=== PATIENT | female | born 1995 | race African-American/Black ===

== ENCOUNTER 2017-01-28 08:08 | Emergency (ER) | payer SELFPAY ==
[~2017-01-28] VITALS: Ht 165.1 cm; Wt 68.0 kg
[~2017-01-28 08:08] MED LIST: ACYC400T PO
[2017-01-28] MEDS ORDERED: 0.9 % SODIUM CHLORIDE 10 ML DISP.SYRIN. IV PRN (08:30)
[2017-01-28] MEDS ORDERED: IV NORMAL SALINE 1,000ML 1,000 ML IV ONE (08:30)
[2017-01-28] MEDS ORDERED: PROMETHAZINE 12.5 MG in IV NORMAL SALINE 50ML 50 ML IV PRN (08:45)
[2017-01-28] MEDS ORDERED: IV NORMAL SALINE 50ML 50 ML ONE (08:47)
[2017-01-28] MEDS ORDERED: PROMETHAZINE 25 MG/ML VIAL IV ONE (08:47)
[2017-01-28] MEDS ORDERED: diphenhydrAMINE 50 MG/ML VIAL IVP ONE (09:00)
[2017-01-28] MEDS ORDERED: ONDANSETRON PF 4 MG/2 ML VIAL. IV ONE (09:00)
[2017-01-28 09:01] LABS: CALCIUM 9.2 mg/dL (8.5-10.1); CREATININE 0.9 mg/dL (0.6-1.0); GFR 96.6; POTASSIUM 3.6 mmol/L (3.5-5.1)
[2017-01-28 09:05] LABS: BASO # 0.1 x10^3/uL (0.0-0.2); BASO % 1 % (0-3); EOS # 0.6 x10^3/uL (0.0-0.7); EOS % 9 % (0-3); HEMOGLOBIN 13.2 g/dL (12.0-15.5); LYMPH # 2.2 x10^3/uL (1.0-4.8); LYMPH % 36 % (24-48); MEAN CORPUSCULAR HEMOGLOBIN 27 pg (25-35); MEAN CORPUSCULAR HGB CONC 33 g/dL (31-37); MEAN CORPUSCULAR VOLUME 83 fL (79-100); MONO # 0.6 x10^3/uL (0.0-1.1); MONO % 10 % (0-9); NEUT # 2.6 x10^3uL (1.8-7.7); NEUT % 44 % (31-73); PLATELET COUNT 297 x10^3/uL (140-400); RED BLOOD COUNT 4.82 x10^6/uL (3.50-5.40); RED CELL DISTRIBUTION WIDTH 13.5 % (11.5-14.5)
[2017-01-28 09:30] LABS: BACTERIA,URINE MOD /HPF (0-FEW); BILIRUBIN,URINE NEG (NEG); CLARITY,URINE CLOUDY; COLOR,URINE YELLOW; GLUCOSE,URINE NEG (NEG); NITRITE,URINE NEG (NEG); RBC,URINE RARE /HPF (0-2); SQUAMOUS EPITHELIAL CELL,UR MANY /LPF; UROBILINOGEN,URINE 0.2 mg/dL (0.2 mg/dL); WBC,URINE OCC /HPF (0-4)
[2017-01-28] MEDS ORDERED: MORPHINE SULFATE 2 MG/ML DISP.SYRIN. IM ONE (09:45)
--- NOTE | 2017-01-28 09:55 | RAD ---
Indication headache. Noncontrast images of the head were obtained. No prior imaging of the head is available. The calvarium appears unremarkable. The visualized paranasal sinuses appear unremarkable. Slightly diminished aeration left mastoid air cells is noted. This is likely incidental. There is no subdural or epidural hematoma. The ventricles and sulci are normal. No mass or midline shift is seen. There is no evidence of hemorrhage. No acute finding is apparent. IMPRESSION: Normal study PQRS Compliance Statement: One or more of the following individualized dose reduction techniques were utilized for this examination: 1. Automated exposure control 2. Adjustment of the mA and/or kV according to patient size 3. Use of iterative reconstruction technique
[2017-01-28 10:44] VITALS: BP 110/63
--- NOTE | 2017-01-29 08:20 | PHYS DOC ---
Past History Past Medical History: Other Past Surgical History: No Surgical History Smoking: Non-smoker Alcohol Use: Occasionally Drug Use: None Adult General Chief Complaint Chief Complaint: HEADACHE HPI HPI Late Entry 0801/29/17 This 21-year-old lady presented with headache and nausea. She woke at 6 AM with headache and vomiting she vomits she vomited 6 times denies any fever or diarrhea. Headache did not come on suddenly was not thunderclap she denies any stiff neck really denies any other problems. She does not think she is and she has no history of migraine headaches. She presents now for evaluation Review of Systems Review of Systems Late Entry 0801/29/17 Constitutional: Denies fever or chills [] Eyes: Denies change in visual acuity, redness, or eye pain [] HENT: Denies nasal congestion or sore throat [] Respiratory: Denies cough or shortness of breath [] Cardiovascular: No additional information not addressed in HPI [] GI: Denies abdominal pain, bloody stools or diarrhea [patient does complain of nausea and vomiting] : Denies dysuria or hematuria [] Musculoskeletal: Denies back pain or joint pain [] Integument: Denies rash or skin lesions [] Neurologic: Complains of headache but denies focal weakness or sensory changes [ ] Endocrine: Denies polyuria or polydipsia [] Current Medications Current Medications Current Medications Medications (Trade) Dose Ordered Sig/Domo Start Time Stop Time Status Last Admin Dose Admin Diphenhydramine HCl (Benadryl) 25 mg 1X ONCE 01/28/17 09:00 01/28/17 09:01 DC 01/28/17 08:52 25 MG Morphine Sulfate (Morphine 2mg Syringe) 2 mg 1X ONCE 01/28/17 09:45 01/28/17 09:46 DC 01/28/17 10:00 2 MG Ondansetron HCl (Zofran) 4 mg 1X ONCE 01/28/17 09:00 01/28/17 09:01 DC 01/28/17 08:49 4 MG Promethazine HCl (Phenergan) 25 mg STK-MED ONCE 01/28/17 08:47 01/28/17 08:48 DC Promethazine HCl 12.5 mg/Sodium Chloride 50.5 ml @ 101 mls/hr PRN Q6HRS PRN 01/28/17 08:45 01/28/17 10:47 DC 01/28/17 08:53 101 MLS/HR Sodium Chloride 50 ml @ As Directed STK-MED ONCE 01/28/17 08:47 01/28/17 08:48 DC Sodium Chloride (Normal Saline Flush) 10 ml PRN DAILY PRN 01/28/17 08:30 01/28/17 10:47 DC Allergies Allergies Allergies Coded Allergies Type Severity Reaction Last Updated Verified No Known Drug Allergies 01/28/17 No Physical Exam Physical Exam Late entry 0801/29/17 Constitutional: Well developed, well nourished, no acute distress, non-toxic appearance. [] HENT: Normocephalic, atraumatic, bilateral external ears normal, oropharynx moist, no oral exudates, nose normal. [] Eyes: PERRLA, EOMI, conjunctiva normal, no discharge. [] Neck: Normal range of motion, no tenderness, supple, no stridor. [] Cardiovascular:Heart rate regular rhythm, no murmur [] Lungs & Thorax: Bilateral breath sounds clear to auscultation [] Abdomen: Bowel sounds normal, soft, no tenderness, no masses, no pulsatile masses. [] Skin: Warm, dry, no erythema, no rash. [] Back: No tenderness, no CVA tenderness. [] Extremities: No tenderness, no cyanosis, no clubbing, ROM intact, no edema. [] Neurologic: Alert and oriented X 3, normal motor function, normal sensory function, no focal deficits noted. [] Psychologic: Affect normal, judgement normal, mood normal. [] Current Patient Data Vital Signs Vital Signs Date Time Temp Pulse Resp B/P (MAP) Pulse Ox O2 Delivery O2 Flow Rate FiO2 01/28/17 10:44 88 18 110/63 (79) 96 Room Air 01/28/17 08:16 97.7 Lab Results Laboratory Tests Test 01/28/17 08:20 01/28/17 08:29 01/28/17 08:44 Urine Collection Type Unknown Urine Color Yellow Urine Clarity Cloudy Urine pH 5.5 Urine Specific [place] >=1.030 Urine Protein 30 mg/dl (NEG-TRACE) Urine Glucose (UA) Neg mg/dL (NEG) Urine Ketones (Stick) Trace mg/dL (NEG) Urine Blood Neg (NEG) Urine Nitrite Neg (NEG) Urine Bilirubin Neg (NEG) Urine Urobilinogen Dipstick 0.2 mg/dL (0.2 mg/dL) Urine Leukocyte Esterase Neg (NEG) Urine RBC Rare /HPF (0-2) Urine WBC Occ /HPF (0-4) Urine Squamous Epithelial Cells Many /LPF Urine Bacteria Mod /HPF (0-FEW) Urine Mucus Slight /LPF POC Urine HCG, Qualitative hcg negative (Negative) White Blood Count 6.0 x10^3/uL (4.0-11.0) Red Blood Count 4.82 x10^6/uL (3.50-5.40) Hemoglobin 13.2 g/dL (12.0-15.5) Hematocrit 40.0 % (36.0-47.0) Mean Corpuscular Volume 83 fL (79-100) Mean Corpuscular Hemoglobin 27 pg (25-35) Mean Corpuscular Hemoglobin Concent 33 g/dL (31-37) Red Cell Distribution Width 13.5 % (11.5-14.5) Platelet Count 297 x10^3/uL (140-400) Neutrophils (%) (Auto) 44 % (31-73) Lymphocytes (%) (Auto) 36 % (24-48) Monocytes (%) (Auto) 10 % (0-9) H Eosinophils (%) (Auto) 9 % (0-3) H Basophils (%) (Auto) 1 % (0-3) Neutrophils # (Auto) 2.6 x10^3uL (1.8-7.7) Lymphocytes # (Auto) 2.2 x10^3/uL (1.0-4.8) Monocytes # (Auto) 0.6 x10^3/uL (0.0-1.1) Eosinophils # (Auto) 0.6 x10^3/uL (0.0-0.7) Basophils # (Auto) 0.1 x10^3/uL (0.0-0.2) Sodium Level 140 mmol/L (136-145) Potassium Level 3.6 mmol/L (3.5-5.1) Chloride Level 103 mmol/L (98-107) Carbon Dioxide Level 25 mmol/L (21-32) Anion Gap 12 (6-14) Blood Urea Nitrogen 13 mg/dL (7-20) Creatinine 0.9 mg/dL (0.6-1.0) Estimated GFR (Cockcroft-Gault) 96.6 Glucose Level 111 mg/dL (70-99) H Calcium Level 9.2 mg/dL (8.5-10.1) EKG EKG [] Radiology/Procedures Radiology/Procedures late entry 0801/29/17 CT scan of the head is essentially unremarkable [] Impressions: Late entry [id number] Headache Nausea and vomiting Course & Med Decision Making Course & Med Decision Making Pertinent Labs and Imaging studies reviewed. (See chart for details)Late entry 0801/29/17 Agents laboratory evaluation reveals a white count of 6000 with 10 monos and 9 eos urinalysis is negative and the patient is not patient's chemistries are all essentially unremarkable with the glucose being 111 This patient presented to our emergency department with headache nausea and vomiting. Her examination was essentially unremarkable with no stiff neck no fever and no other symptoms. She was given a liter of saline she was given Zofran she was given Phenergan 12.5 mg IV as well as Benadryl 25 mg IV and finally she was given morphine 2 mg IV her headache resolved she felt better she was instructed to rest and plenty of fluids with her doctor problems persist This headache may certainly represent a migraine variant [] Dragon Disclaimer Dragon Disclaimer This chart was dictated in whole or in part using Voice Recognition software in a busy, high-work load, and often noisy Emergency Department environment. It may contain unintended and wholly unrecognized errors or omissions. Departure Departure: Impression: Primary Impression: Vomiting Additional Impression: Headache Disposition: HOME, SELF-CARE Condition: STABLE Patient Instructions: Headache, FAQs Problem Qualifiers ADEN LUKE MD January 29, 2017 08:20
== END 2017-01-28 10:45 | disposition home or self-care (01) ==
LOC: ER 08:08
DX: R51 Headache (principal); R11.2 Nausea with vomiting, unspecified
CPT/HCPCS: 36415; 70450; 80048; 81001; 84703; 85027; 96365; 96372; 96375; 99285; J1200; J2270; J2405; J2550; 81025; J7030

== ENCOUNTER 2017-03-22 14:08 | Emergency (ER) | payer OTHER ==
[~2017-03-22] VITALS: Ht 165.1 cm; Wt 68.0 kg
[2017-03-22 14:15] VITALS: BP 134/60
[2017-03-22] MEDS ORDERED: IV NORMAL SALINE 1,000ML 1,000 ML IV SCH (16:02)
[2017-03-22 16:34] LABS: BACTERIA,URINE 0 /HPF (0-FEW); BILIRUBIN,URINE NEG (NEG); CLARITY,URINE HAZY; COLOR,URINE YELLOW; GLUCOSE,URINE NEG (NEG); RBC,URINE TNTC /HPF (0-2); SQUAMOUS EPITHELIAL CELL,UR OCC /LPF; UROBILINOGEN,URINE 0.2 mg/dL (0.2 mg/dL)
[2017-03-22 16:35] LABS: NITRITE,URINE NEG (NEG)
[2017-03-22 16:57] LABS: BASO % 1 % (0-3); EOS # 0.2 x10^3/uL (0.0-0.7); EOS % 3 % (0-3); HEMATOCRIT 42.6 % (36.0-47.0); HEMOGLOBIN 14.2 g/dL (12.0-15.5); LYMPH # 1.8 x10^3/uL (1.0-4.8); LYMPH % 31 % (24-48); MEAN CORPUSCULAR HEMOGLOBIN 28 pg (25-35); MEAN CORPUSCULAR HGB CONC 33 g/dL (31-37); MEAN CORPUSCULAR VOLUME 84 fL (79-100); MONO # 0.4 x10^3/uL (0.0-1.1); MONO % 6 % (0-9); NEUT # 3.3 x10^3uL (1.8-7.7); NEUT % 59 % (31-73); PLATELET COUNT 272 x10^3/uL (140-400); RED BLOOD COUNT 5.07 x10^6/uL (3.50-5.40); WHITE BLOOD COUNT 5.6 x10^3/uL (4.0-11.0)
[2017-03-22 17:24] LABS: ALBUMIN 4.4 g/dL (3.4-5.0); CALCIUM 9.5 mg/dL (8.5-10.1); CREATININE 0.9 mg/dL (0.6-1.0); DIRECT BILIRUBIN 0.2 mg/dL (0.0-0.2); GFR 96.6; MAGNESIUM 2.1 mg/dL (1.8-2.4); POTASSIUM 3.7 mmol/L (3.5-5.1); TOTAL BILIRUBIN 0.7 mg/dL (0.2-1.0); TOTAL PROTEIN 8.4 g/dL (6.4-8.2)
--- NOTE | 2017-03-22 18:05 | RAD ---
Ultrasound Pelvis Indication: came in for a STD check and had a positive urine preg test. quant beta hcg was not available at the time of exam it is still being processed Technique: Multiple real-time grayscale images were obtained over the pelvis transabdominally and transvaginally. Color Doppler imaging was utilized. Comparison: None Findings: The uterus is normal in size measuring 6.9 x 3.2 x 2.6 cm. There is a single intrauterine gestational sac with a diameter of 0.2 cm compatible with estimated gestational age 4 weeks 6 days. pole is not yet visible. The right ovary measures 2.7 x 3.0 x 1.3 cm. No abnormal right ovarian lesions are identified. Normal blood flow is identified. The left ovary measures 2.5 x 2.8 x 2.1 cm. A 1.1 x 1.4 x 1.2 cm cyst is noted. Normal blood flow is identified No pelvic free fluid is identified. Impression: Single intrauterine gestational sac with estimated gestational age 4 weeks 6 days. Electronically signed by: Sudhir Villatoro MD (03/22/2017 6:02 PM) [facility]
--- NOTE | 2017-03-22 18:15 | PHYS DOC ---
Past History Past Medical History: No Pertinent History, STD Past Surgical History: No Surgical History Smoking: Non-smoker Alcohol Use: None Drug Use: None Adult General Chief Complaint Chief Complaint: SEXUALLY TRANSMITTED DISEASE HPI HPI Patient is a 21 year old female who presents with complaints of abdominal pain and vaginal bleeding. The patient states that her symptoms have been present over the past 2-3 days. Patient states that she has been having burning with urination and abnormal discharge. The patient thinks that she may have a sexually transmitted infection which is why she came to the emergency department. Patient has had multiple sexual partners over the past 2 weeks. Patient denies any fevers. Patient states that her pain is in her lower abdomen and feels like cramping. The patient also notes that she is been having abnormal vaginal bleeding. Patient states that her last menstrual period was in January 2017. Patient notes that she also had spotting on February 28, 2017 that resolved and is now having additional bleeding today. Patient has not taken a test at home and does not know if she is . Patient rates the pain in her abdomen as 6 out of 10. Review of Systems Review of Systems Constitutional: Denies fever or chills [] Eyes: Denies change in visual acuity, redness, or eye pain [] HENT: Denies nasal congestion or sore throat [] Respiratory: Denies cough or shortness of breath [] Cardiovascular: Denies chest pain or edema [] GI: Abdominal pain, nausea, denies vomiting or diarrhea [] : Vaginal bleeding, vaginal discharge, dysuria [] Musculoskeletal: Back pain [] Integument: Denies rash or skin lesions [] Neurologic: Denies headache, focal weakness or sensory changes [] Current Medications Current Medications Current Medications Medications (Trade) Dose Ordered Sig/[facility] Start Time Stop Time Status Last Admin Dose Admin Sodium Chloride 1,000 ml @ 1,000 mls/hr Q1H 03/22/17 16:02 03/22/17 17:01 DC Allergies Allergies Allergies Coded Allergies Type Severity Reaction Last Updated Verified No Known Drug Allergies 01/28/17 No Physical Exam Physical Exam Constitutional: Alert, afebrile, no acute distress. [] HENT: Normocephalic, atraumatic, bilateral external ears normal, oropharynx moist, no oral exudates, nose normal. [] Eyes: PERRLA, EOMI, conjunctiva normal, no discharge. [] Neck: Normal range of motion, no tenderness, supple, no stridor. [] Cardiovascular:Heart rate regular rhythm, no murmur [] Lungs & Thorax: Bilateral breath sounds clear to auscultation [] Abdomen: Bowel sounds normal, soft, mild suprapubic tenderness to palpation with no guarding or rebound tenderness, no masses, no pulsatile masses. : Normal external exam, mild to moderate amount of blood in vaginal canal, cervical os closed, no cervical motion tenderness, mild midline tenderness on bimanual exam [] Skin: Warm, dry, no erythema, no rash. [] Back: No tenderness, no CVA tenderness. [] Extremities: No tenderness, no cyanosis, no clubbing, ROM intact, no edema. [] Neurologic: Alert and oriented X 3, normal motor function, normal sensory function, no focal deficits noted. [] Current Patient Data Vital Signs Vital Signs Date Time Temp Pulse Resp B/P (MAP) Pulse Ox O2 Delivery O2 Flow Rate FiO2 03/22/17 14: 98.0 98 19 99 Room Air Lab Results Laboratory Tests Test 03/22/17 15:40 03/22/17 15:58 03/22/17 16:35 Urine Collection Type Unknown Urine Color Yellow Urine Clarity Hazy Urine pH 6.0 Urine Specific [place] 1.015 Urine Protein Neg (NEG-TRACE) Urine Glucose (UA) Neg mg/dL (NEG) Urine Ketones (Stick) 15 mg/dL (NEG) Urine Blood Large (NEG) Urine Nitrite Neg (NEG) Urine Bilirubin Neg (NEG) Urine Urobilinogen Dipstick 0.2 mg/dL (0.2 mg/dL) Urine Leukocyte Esterase Trace (NEG) Urine RBC Tntc /HPF (0-2) Urine WBC 1-4 /HPF (0-4) Urine Squamous Epithelial Cells Occ /LPF Urine Bacteria 0 /HPF (0-FEW) Urine Mucus Slight /LPF POC Urine HCG, Qualitative hcg positive (Negative) White Blood Count 5.6 x10^3/uL (4.0-11.0) Red Blood Count 5.07 x10^6/uL (3.50-5.40) Hemoglobin 14.2 g/dL (12.0-15.5) Hematocrit 42.6 % (36.0-47.0) Mean Corpuscular Volume 84 fL (79-100) Mean Corpuscular Hemoglobin 28 pg (25-35) Mean Corpuscular Hemoglobin Concent 33 g/dL (31-37) Red Cell Distribution Width 14.0 % (11.5-14.5) Platelet Count 272 x10^3/uL (140-400) Neutrophils (%) (Auto) 59 % (31-73) Lymphocytes (%) (Auto) 31 % (24-48) Monocytes (%) (Auto) 6 % (0-9) Eosinophils (%) (Auto) 3 % (0-3) Basophils (%) (Auto) 1 % (0-3) Neutrophils # (Auto) 3.3 x10^3uL (1.8-7.7) Lymphocytes # (Auto) 1.8 x10^3/uL (1.0-4.8) Monocytes # (Auto) 0.4 x10^3/uL (0.0-1.1) Eosinophils # (Auto) 0.2 x10^3/uL (0.0-0.7) Basophils # (Auto) 0.0 x10^3/uL (0.0-0.2) Maternal Serum HCG Beta Subunit 21 mIU/mL (0-6) H Sodium Level 140 mmol/L (136-145) Potassium Level 3.7 mmol/L (3.5-5.1) Chloride Level 104 mmol/L (98-107) Carbon Dioxide Level 28 mmol/L (21-32) Anion Gap 8 (6-14) Blood Urea Nitrogen 12 mg/dL (7-20) Creatinine 0.9 mg/dL (0.6-1.0) Estimated GFR (Cockcroft-Gault) 96.6 Glucose Level 79 mg/dL (70-99) Calcium Level 9.5 mg/dL (8.5-10.1) Magnesium Level 2.1 mg/dL (1.8-2.4) Total Bilirubin 0.7 mg/dL (0.2-1.0) Direct Bilirubin 0.2 mg/dL (0.0-0.2) Aspartate Amino Transferase (AST) 16 U/L (15-37) Alanine Aminotransferase (ALT) 17 U/L (14-59) Alkaline Phosphatase 96 U/L (46-116) Total Protein 8.4 g/dL (6.4-8.2) H Albumin 4.4 g/dL (3.4-5.0) Microbiology 03/22/17 Wet Prep - Final, Complete EKG EKG Not performed [] Radiology/Procedures Radiology/Procedures [address] [address] IMAGING REPORT Signed PATIENT: DAIANA COSTA ACCOUNT: [id number] : 1995 LOCATION: ER AGE: 21 SEX: F EXAM STATUS: REG ER ORD. PHYSICIAN: LEXI LEA MD REASON: vaginal bleeding, positive test, LMP 01/2017 PROCEDURE: OB <14 WKS W/TV Ultrasound Pelvis Indication: came in for a STD check and had a positive urine preg test. quant beta hcg was not available at the time of exam it is still being processed Technique: Multiple real-time grayscale images were obtained over the pelvis transabdominally and transvaginally. Color Doppler imaging was utilized. Comparison: None Findings: The uterus is normal in size measuring 6.9 x 3.2 x 2.6 cm. There is a single intrauterine gestational sac with a diameter of 0.2 cm compatible with estimated gestational age 4 weeks 6 days. pole is not yet visible. The right ovary measures 2.7 x 3.0 x 1.3 cm. No abnormal right ovarian lesions are identified. Normal blood flow is identified. The left ovary measures 2.5 x 2.8 x 2.1 cm. A 1.1 x 1.4 x 1.2 cm cyst is noted. Normal blood flow is identified No pelvic free fluid is identified. Impression: Single intrauterine gestational sac with estimated gestational age 4 weeks 6 days. Electronically signed by: Akbar Villatoro MD (03/22/2017 6:02 PM) [facility] DICTATED AND SIGNED BY: AKBAR VILLATORO MD DATE: 03/22/17 2772 CC: LEXI LEA MD; PCP,NO ~ [] Course & Med Decision Making Course & Med Decision Making Pertinent Labs and Imaging studies reviewed. (See chart for details) Patient was found have a positive test in the emergency department. I expanded workup, the patient's hCG level was found to be very low and patient's ultrasound does not show an obvious intrauterine but does show a gestational sac. Considerations are early with threatened miscarriage versus active miscarriage. I spoke with Dr. Tena of [facility] regarding case. She agreed based off of reviewing labs, history, and ultrasound findings that the patient at this time can be followed as outpatient. She agreed to follow-up with the patient in her clinic in the next 5 days. Due to risk of exposure to STD, the patient was treated with Rocephin and azithromycin in the emergency department. Patient informed of findings and stressed importance of need to follow-up. Recommended return to the emergency department for any worsening symptoms. Patient voiced understanding and in agreement with treatment plan. Dragon Disclaimer Dragon Disclaimer This chart was dictated in whole or in part using Voice Recognition software in a busy, high-work load, and often noisy Emergency Department environment. It may contain unintended and wholly unrecognized errors or omissions. Departure Departure: Impression: Primary Impression: Threatened miscarriage Disposition: 01 HOME, SELF-CARE Condition: STABLE Referrals: PCP,NO (PCP) Patient Instructions: Threatened Miscarriage Additional Instructions: Results of cultures typically take 2-3 days to resolve. You will be contacted if your results are positive. Follow-up with Dr. Tena of [facility] in the next 5 days. Return to the emergency department for any worsening symptoms. LEXI LEA MD Mar 22, 2017 18:15
[2017-03-22] MEDS ORDERED: LIDOCAINE 1% Multi-Dose 20 ML VIAL. ONE (18:26)
[2017-03-22] MEDS ORDERED: AZITHROMYCIN 250 MG TABLET. PO ONE (18:45)
[2017-03-22] MEDS ORDERED: cefTRIAXone IM 250 MG VIAL IM ONE (18:45)
[2017-03-26 03:10] LABS: CHLAMYDIA PROBE Negative (Negative)
== END 2017-03-22 16:40 | disposition home or self-care (01) ==
LOC: ER 14:08
DX: O20.0 Threatened abortion (principal); A64 Unspecified sexually transmitted disease; Z3A.01 Less than 8 weeks gestation of pregnancy
CPT/HCPCS: 76801; 76817; 80048; 80076; 81001; 81025; 83735; 84702; 85027; 86900; 86901; 87086; 96372; 99285; J0456; J0696; Q0111

== ENCOUNTER 2017-04-03 16:01 | Emergency (ER) | payer OTHER ==
[2017-04-03 17:22] LABS: BASO % 1 % (0-3); EOS # 0.3 x10^3/uL (0.0-0.7); EOS % 5 % (0-3); HEMATOCRIT 36.3 % (36.0-47.0); HEMOGLOBIN 11.9 g/dL (12.0-15.5); LYMPH # 1.9 x10^3/uL (1.0-4.8); LYMPH % 39 % (24-48); MEAN CORPUSCULAR HEMOGLOBIN 28 pg (25-35); MEAN CORPUSCULAR HGB CONC 33 g/dL (31-37); MEAN CORPUSCULAR VOLUME 85 fL (79-100); MONO # 0.4 x10^3/uL (0.0-1.1); MONO % 8 % (0-9); NEUT # 2.3 x10^3uL (1.8-7.7); NEUT % 47 % (31-73); PLATELET COUNT 256 x10^3/uL (140-400); RED BLOOD COUNT 4.28 x10^6/uL (3.50-5.40); RED CELL DISTRIBUTION WIDTH 13.3 % (11.5-14.5); WHITE BLOOD COUNT 4.8 x10^3/uL (4.0-11.0)
[2017-04-03 17:24] LABS: CALCIUM 8.7 mg/dL (8.5-10.1); CREATININE 0.9 mg/dL (0.6-1.0); GFR 96.6; MAGNESIUM 1.8 mg/dL (1.8-2.4); POTASSIUM 3.2 mmol/L (3.5-5.1)
[2017-04-03 18:14] LABS: BILIRUBIN,URINE NEG (NEG); CLARITY,URINE CLEAR; COLOR,URINE YELLOW; GLUCOSE,URINE NEG (NEG)
[2017-04-03 18:15] LABS: BACTERIA,URINE FEW /HPF (0-FEW); NITRITE,URINE NEG (NEG); RBC,URINE 0 /HPF (0-2); SQUAMOUS EPITHELIAL CELL,UR MANY /LPF; UROBILINOGEN,URINE 0.2 mg/dL (0.2 mg/dL)
--- NOTE | 2017-04-03 18:22 | PHYS DOC ---
Past History Past Medical History: No Pertinent History, STD Past Surgical History: No Surgical History Smoking: Non-smoker Alcohol Use: None Drug Use: None Adult General Chief Complaint Chief Complaint: ABDOMINAL PAIN IN [place] [employer] HPI Patient is a 21 year old female who presents with complaint of lower abdominal cramping. Patient was seen in the emergency department on March 22, 2017 for concern of sexually transmitted infection. Patient was treated for gonorrhea and chlamydia infection at that time. Patient was also found to have a positive test. An ultrasound at that time showed an intrauterine gestational sac with estimated age of 4 weeks and 6 days without a visualized pole at that time. Patient states that she was also seen at another emergency department within a few days after her visit where she received additional treatment for gonorrhea infection and was started on an intravaginal gel for treatment of an additional infection which the patient cannot identify at this time. The patient was referred from her March [address] Tena of [facility]. Patient states that she has not made an appointment to be seen as she was told that she would not be seen until she was at "12 weeks." Patient states that the pain has been cramping in nature. Patient denies any associated vaginal bleeding. Patient states that she has had a thickened vaginal discharge but that her symptoms have overall improved after treatment from her previous to emergency department visits. Patient denies any associated nausea, vomiting, or fever with her symptoms. Patient currently rates her pain as 6 out of 10. Patient has not taken any medications to help with her symptoms. Review of Systems Review of Systems Constitutional: Denies fever or chills [] Eyes: Denies change in visual acuity, redness, or eye pain [] HENT: Denies nasal congestion or sore throat [] Respiratory: Denies cough or shortness of breath [] Cardiovascular: No additional information not addressed in HPI [] GI: Lower abdominal pain, denies nausea, vomiting, bloody stools or diarrhea [] : Denies dysuria or hematuria [] Musculoskeletal: Denies back pain or joint pain [] Integument: Denies rash or skin lesions [] Neurologic: Denies headache, focal weakness or sensory changes [] Allergies Allergies Allergies Coded Allergies Type Severity Reaction Last Updated Verified No Known Drug Allergies 01/28/17 No Physical Exam Physical Exam Constitutional: Alert, afebrile, no acute distress. [] HENT: Normocephalic, atraumatic, bilateral external ears normal, oropharynx moist, no oral exudates, nose normal. [] Eyes: PERRLA, EOMI, conjunctiva normal, no discharge. [] Neck: Normal range of motion, no tenderness, supple, no stridor. [] Cardiovascular:Heart rate regular rhythm, no murmur [] Lungs & Thorax: Bilateral breath sounds clear to auscultation [] Abdomen: Bowel sounds normal, soft, no tenderness, no masses, no pulsatile masses. [] Skin: Warm, dry, no erythema, no rash. [] Back: No tenderness, no CVA tenderness. [] Extremities: No tenderness, no cyanosis, no clubbing, ROM intact, no edema. [] Neurologic: Alert and oriented X 3, normal motor function, normal sensory function, no focal deficits noted. [] Current Patient Data Vital Signs Vital Signs Date Time Temp Pulse Resp B/P (MAP) Pulse Ox O2 Delivery O2 Flow Rate FiO2 04/03/17 16:01 98.5 95 16 99 Room Air Lab Results Laboratory Tests Test 04/03/17 17:00 04/03/17 17:39 White Blood Count 4.8 x10^3/uL (4.0-11.0) Red Blood Count 4.28 x10^6/uL (3.50-5.40) Hemoglobin 11.9 g/dL (12.0-15.5) L Hematocrit 36.3 % (36.0-47.0) Mean Corpuscular Volume 85 fL (79-100) Mean Corpuscular Hemoglobin 28 pg (25-35) Mean Corpuscular Hemoglobin Concent 33 g/dL (31-37) Red Cell Distribution Width 13.3 % (11.5-14.5) Platelet Count 256 x10^3/uL (140-400) Neutrophils (%) (Auto) 47 % (31-73) Lymphocytes (%) (Auto) 39 % (24-48) Monocytes (%) (Auto) 8 % (0-9) Eosinophils (%) (Auto) 5 % (0-3) H Basophils (%) (Auto) 1 % (0-3) Neutrophils # (Auto) 2.3 x10^3uL (1.8-7.7) Lymphocytes # (Auto) 1.9 x10^3/uL (1.0-4.8) Monocytes # (Auto) 0.4 x10^3/uL (0.0-1.1) Eosinophils # (Auto) 0.3 x10^3/uL (0.0-0.7) Basophils # (Auto) 0.0 x10^3/uL (0.0-0.2) Maternal Serum HCG Beta Subunit 3682 mIU/mL (0-6) H Sodium Level 140 mmol/L (136-145) Potassium Level 3.2 mmol/L (3.5-5.1) L Chloride Level 104 mmol/L (98-107) Carbon Dioxide Level 26 mmol/L (21-32) Anion Gap 10 (6-14) Blood Urea Nitrogen 8 mg/dL (7-20) Creatinine 0.9 mg/dL (0.6-1.0) Estimated GFR (Cockcroft-Gault) 96.6 Glucose Level 129 mg/dL (70-99) H Calcium Level 8.7 mg/dL (8.5-10.1) Magnesium Level 1.8 mg/dL (1.8-2.4) Urine Collection Type Unknown Urine Color Yellow Urine Clarity Clear Urine pH 6.0 Urine Specific [place] 1.010 Urine Protein Neg (NEG-TRACE) Urine Glucose (UA) Neg mg/dL (NEG) Urine Ketones (Stick) Neg mg/dL (NEG) Urine Blood Neg (NEG) Urine Nitrite Neg (NEG) Urine Bilirubin Neg (NEG) Urine Urobilinogen Dipstick 0.2 mg/dL (0.2 mg/dL) Urine Leukocyte Esterase Neg (NEG) Urine RBC 0 /HPF (0-2) Urine WBC 1-4 /HPF (0-4) Urine Squamous Epithelial Cells Many /LPF Urine Bacteria Few /HPF (0-FEW) Urine Mucus Slight /LPF EKG EKG Not performed [] Radiology/Procedures Radiology/Procedures Not performed [] Course & Med Decision Making Course & Med Decision Making Pertinent Labs and Imaging studies reviewed. (See chart for details) The patient's exam is benign at this time. Patient's previous ultrasound showed a developing intrauterine . The patient's hCG levels have increased modestly from her previous visit. A threatened miscarriage remains in the differential diagnosis at this time. Due to the absence of vaginal bleeding the patient was strongly recommended to follow-up in 2 days with [facility] to have a repeat hCG level drawn at that time. Recommended continued oral hydration at home. Patient was instructed to return immediately to the emergency Department for the development of any severe vaginal bleeding, pain, or any other worsening symptoms. Patient voiced understanding and in agreement with treatment plan. Dragon Disclaimer Dragon Disclaimer This chart was dictated in whole or in part using Voice Recognition software in a busy, high-work load, and often noisy Emergency Department environment. It may contain unintended and wholly unrecognized errors or omissions. Departure Departure: Impression: Primary Impression: Abdominal pain during Disposition: HOME, SELF-CARE Condition: STABLE Referrals: PCP,DEVIN (PCP) Patient Instructions: Abdominal Pain During Additional Instructions: Call the office of Dr. Tena at [phone] tomorrow to schedule follow-up and repeat hCG testing in 2 days. Your hCG level today was 3682. Her office address is [address] [place] [address]. Return to the emergency Department for the development of any worsening symptoms, abnormal vaginal bleeding, discharge or any other worrisome symptoms. Problem Qualifiers Primary Impression: Abdominal pain during Trimester: first trimester Qualified Codes: O26.891 - Other specified related conditions, first trimester; R10.9 - Unspecified abdominal pain LEXI LEA MD Apr 03, 2017 18:22
[2017-04-03 18:58] VITALS: BP 99/62
== END 2017-04-03 18:58 | disposition home or self-care (01) ==
LOC: ER 16:01
DX: O26.891 Other specified pregnancy related conditions, first trimester (principal); R10.9 Unspecified abdominal pain; A64 Unspecified sexually transmitted disease; Z3A.00 Weeks of gestation of pregnancy not specified
CPT/HCPCS: 36415; 80048; 81001; 83735; 84702; 85027; 99284

== ENCOUNTER 2017-04-06 17:23 | Emergency (ER) | payer OTHER ==
[2017-04-06 17:45] VITALS: BP 114/56
== END 2017-04-06 17:45 | disposition home or self-care (01) ==
LOC: ER 17:23
DX: O46.91 Antepartum hemorrhage, unspecified, first trimester (principal); Z3A.01 Less than 8 weeks gestation of pregnancy; Z53.21 Procedure and treatment not carried out due to patient leaving prior to being seen by health care provider

== ENCOUNTER 2017-04-07 10:06 | Emergency (ER) | payer OTHER ==
[~2017-04-07] VITALS: Ht 165.1 cm; Wt 62.1 kg
[2017-04-07 10:14] VITALS: BP 126/54
--- NOTE | 2017-04-07 11:35 | PHYS DOC ---
General Chief Complaint: VAGINAL BLEEDING Stated Complaint: BLEEDING 6 WEEKS PREG Time Seen by MD: 10:14 Source: patient Exam Limitations: no limitations Problems: History of Present Illness Initial Comments Patient is a 21-year-old female who comes to the ED complaining of bleeding during . Patient is currently a 1 para 0 last menstrual period February 22 patient has no pairer is taking no vitamins and continues to smoke cigarettes. Patient states she's had some vaginal bleeding, she was registered in the emergency department yesterday but left before being seen. She states that she went through 2 pads yesterday however is currently wearing no pad as she hasn't had any bleeding today. She denies any abdominal or pelvic cramping no low back discomfort no fever chills sweats or myalgias. Patient has been seen during this before and ultrasound revealed a single viable intrauterine . Timing/Duration: yesterday, gone now Severity/Quality: moderate Location: vaginal Radiation: none Activities at Onset: none Prior Genitourinary Problems: none Sexual [place] History: other Modifying Factors: improves with other Associated Symptoms: other Allergies: Coded Allergies: No Known Drug Allergies (Unverified , 01/28/17) Past Medical History Medical History: no pertinent history Surgical History: no surgical history Para: 1 : 1 LMP (Females 10-50): (02/22) Family History Significant Family History: no pertinent family hx Social History Smoker: cigarettes Alcohol: none Drugs: none Review of Systems Constitutional: denies chills, denies diaphoresis, denies fever, denies malaise Respiratory: denies cough, denies shortness of breath Cardiovascular: denies chest pain, denies palpitations Gastrointestinal: denies abdominal pain, denies diarrhea, denies nausea, denies vomiting Genitourinary: see HPI Musculoskeletal: denies back pain, denies joint swelling, denies muscle pain, denies muscle stiffness, denies neck pain Skin: denies lesions, denies lumps, denies rash Psychiatric/Neurological: denies headache, denies numbness, denies paresthesia Hematologic/Lymphatic: denies blood clots, denies easy bleeding, denies easy bruising Physical Exam General Appearance: WD/WN, no apparent distress HEENT: PERRL/EOMI, normal ENT inspection Neck: non-tender, supple Cardiovascular/Respiratory: normal peripheral pulses, normal breath sounds Gastrointestinal: normal bowel sounds, non tender, soft, no organomegaly Back: no CVA tenderness, no vertebral tenderness Extremities: non-tender, normal inspection Neurologic/Psychiatric: nanoscience technician II-XII nml as tested, no motor/sensory deficits, alert, normal mood/affect, oriented x 3 Skin: normal color, warm/dry Orders, Labs, Meds I discussed the patient's symptoms with her at length. Very early gestation with a few days mild vaginal bleeding no abdominal pain or low back discomfort. Bleeding has resolved at this point, there is no emergent indication for ultrasound or other evaluation. I discussed smoking cessation, vitamins , and early [employer] MACH[employer] follow-up. I discussed threatened miscarriage as well as actual miscarriage and the treatment plan and prognosis were this to develop into a miscarriage. The patient's questions were answered she expressed agreement and understanding of the treatment plan. Departure Time of Disposition: 11:33 Disposition: HOME, SELF-CARE Diagnosis: threatened miscarriage Condition: STABLE Patient Instructions: Medicines During , Vaginal Bleeding During , First Trimester Additional Instructions: Please look over the patient education materials given to you as discussed. Off work, no strenuous activity or work until OB evaluation. vitamins daily. Aggressive hydration with Gatorade and water. [id number] Tylenol for discomfort. Heating pad as needed for symptom control use per package instructions. Follow-up with your pairer this Saturday as scheduled. Return to ED with new or changing symptoms. KAREL QUINONES DO Apr 07, 2017 11:35
== END 2017-04-07 11:48 | disposition home or self-care (01) ==
LOC: ER 10:06
DX: O20.0 Threatened abortion (principal); O99.331 Smoking (tobacco) complicating pregnancy, first trimester; Z3A.01 Less than 8 weeks gestation of pregnancy
CPT/HCPCS: 99281

== ENCOUNTER 2017-04-25 12:56 | Emergency (ER) | payer OTHER ==
[~2017-04-25] VITALS: Ht 165.1 cm; Wt 62.1 kg
[2017-04-25 13:12] VITALS: BP 110/61
--- NOTE | 2017-04-25 14:08 | PHYS DOC ---
Past History Past Medical History: No Pertinent History Past Surgical History: No Surgical History Smoking: Non-smoker Alcohol Use: None Drug Use: None Adult General Chief Complaint Chief Complaint: SEXUALLY TRANSMITTED DISEASE HPI HPI Patient is a pleasant otherwise healthy 21-year-old female who presents with burning sensation in her vagina and discharge. She was seen here March 22 for similar presentation aching on a new sexual partner and exposed to which she believes was gonorrhea. Since that time she is been treated. She had her partner as she understands also was treated. sHe began having sexual activity 3 days ago on her burning and discharge began to get grossly worse. She presents today with no abdominal pain, no nausea, no vomiting no UTI symptoms just a burning incision in her vagina with discharge. Patient denies any back pain, joint swelling, rash, or other symptoms. She has no complaint of flulike symptoms or diarrhea. Review of Systems Review of Systems Constitutional: Denies fever or chills [] Eyes: Denies change in visual acuity, redness, or eye pain [] HENT: Denies nasal congestion or sore throat [] Respiratory: Denies cough or shortness of breath [] Cardiovascular: No additional information not addressed in HPI [] GI: Denies abdominal pain, nausea, vomiting, bloody stools or diarrhea [] : Denies dysuria or hematuria she only complains of a burning station her vagina with vaginal discharge. Musculoskeletal: Denies back pain or joint pain [] Integument: Denies rash or skin lesions [] Neurologic: Denies headache, focal weakness or sensory changes [] Current Medications Current Medications Current Medications Medications (Trade) Dose Ordered Sig/[facility] Start Time Stop Time Status Last Admin Dose Admin Azithromycin (Zithromax) 1 gm 1X ONCE 04/25/17 14:10 04/25/17 14:11 Ceftriaxone Sodium (Rocephin Im) 250 mg 1X ONCE 04/25/17 14:10 04/25/17 14:11 Allergies Allergies Allergies Coded Allergies Type Severity Reaction Last Updated Verified No Known Drug Allergies 01/28/17 No Physical Exam Physical Exam vital Signs reviewed on the chart within normal limits Constitutional: Well developed, well nourished, no acute distress, non-toxic appearance. [] Cardiovascular:Heart rate regular rhythm, no murmur [] Lungs & Thorax: Bilateral breath sounds clear to auscultation [] Abdomen: Bowel sounds normal, soft, no tenderness, no masses, no pulsatile masses. [] Skin: Warm, dry, no erythema, no rash. [] Back: No tenderness, no CVA tenderness. [] Neurologic: Alert and oriented X 3, Psychologic: Affect normal, judgement normal, mood normal. [] exam is deferred by the patient. I did explain to the patient that not being able to complete an exam does not out allow me to collect the prep cultures for her treatment. It is also noted that the patient is . She states last time she was here she was also diagnosed with a positive test was seen in the subsequent ER and told she did not have her . Patient was offered appropriate evaluation but again denies exam. Current Patient Data Vital Signs Vital Signs Date Time Temp Pulse Resp B/P (MAP) Pulse Ox O2 Delivery O2 Flow Rate FiO2 04/25/17 13:12 94 20 98 Room Air Lab Results Laboratory Tests Test 04/25/17 14:03 POC Urine HCG, Qualitative hcg positive (Negative) EKG EKG [] Radiology/Procedures Radiology/Procedures [] Course & Med Decision Making Course & Med Decision Making Pertinent Labs and Imaging studies reviewed. (See chart for details) patient presents with burning in her vagina with discharge. Patient denies abdominal pain, nausea, vomiting, diarrhea or there is also discovered during her workup that she has a bejyb-ns-wrxk urine deficits positive. Patient stated "" this is happening the last time I was here and when I left here and went to to have a complete workup of this and that I had and they told her that she was not with a negative ultrasound negative Quant. She stated then that she was not interested in any other workup for follow-up with her doctor to evaluate the stage of this patient and see if she is in fact . Patient denies any abdominal pain she and I talked about limitations of not completing the exam her completing the appropriate workup for sent . She would prefer to follow up with her regular [facility] DRAGLINE OPERATOR for that workup. I again offered her at any point in time especially she has any discomfort to return immediately to go ahead and have this worked up. We also talked with the limitation of not being allowed to do the physical exam [facility] needed to ensure that there is no evidence of PID, ectopic or other symptoms. Patient assures me that she will follow-up as I requested. She understands this risk and is willing to assume those risks based on what we have talked about the bedside. She asked me what I thought she should do to her that she should stay and have this worked up but she needed to be out of our facility by 2:30 PM. Which is not one to be possible. She elected to go and she will follow-up with her GASOLINE DRAGLINE OPERATOR. She understands the precautions and will follow- up as necessary [] Brent Disclaimer Dragon Disclaimer This chart was dictated in whole or in part using Voice Recognition software in a busy, high-work load, and often noisy Emergency Department environment. It may contain unintended and wholly unrecognized errors or omissions. Departure Departure: Impression: Primary Impression: Sexually transmitted disease in female Additional Impressions: Vaginal discharge Left against medical advice Disposition: HOME, SELF-CARE Condition: IMPROVED Referrals: PCP,NO (PCP) Patient Instructions: Chlamydia, Female, Gonorrhea, Females and Males, Tests Additional Instructions: Please return for any pain in her abdomen had any reason. I'm worried about the presence of ectopic but not being allowed to treat to examine you as appropriate, as our ability to rule out this particular issue. Also when we cannot complete a pelvic exam with appropriate cultures there is no guarantee that we are treating an appropriate STD. Given your exposure and risk we need to make sure that your have improvement of her symptoms. Pelvic inflammatory disease is still bleeding causing and tone in this country headache, she'll chronic disability and chronic pain. Please return if you have any questions or concerns, localized pain in her lower abdomen or if you have any questions or concerns. Scripts Doxycycline Monohydrate (DOXYCYCLINE MONOHYDRATE) 100 Mg Capsule 1 CAP PO BID, #20 CAP Prov: DESTINY RODRIGUEZ MD 04/25/17 Problem Qualifiers DESTINY RODRIGUEZ MD Apr 25, 2017 14:08
[2017-04-25] MEDS ORDERED: cefTRIAXone IM 250 MG VIAL IM ONE (14:10)
[2017-04-25] MEDS ORDERED: AZITHROMYCIN 1 GM PACKET PO ONE (14:10)
[2017-04-25 14:20] LABS: BACTERIA,URINE FEW /HPF (0-FEW); BILIRUBIN,URINE NEG (NEG); CLARITY,URINE HAZY; COLOR,URINE AMBER; GLUCOSE,URINE NEG (NEG); NITRITE,URINE NEG (NEG); SQUAMOUS EPITHELIAL CELL,UR FEW /LPF; UROBILINOGEN,URINE 0.2 mg/dL (0.2 mg/dL)
[2017-04-25] MEDS ORDERED: DOXY100C14 PO (14:23)
== END 2017-04-25 14:37 | disposition home or self-care (01) ==
LOC: ER 12:56
DX: A64 Unspecified sexually transmitted disease (principal); N89.8 Other specified noninflammatory disorders of vagina
CPT/HCPCS: 81001; 81025; 87086; 96372; 99284; J0456; J0696; 99283-25

== ENCOUNTER 2017-05-23 10:20 | Emergency (ER) | payer OTHER ==
[~2017-05-23] VITALS: Ht 165.1 cm; Wt 62.2 kg
[~2017-05-23 10:20] MED LIST changes: +DOXY100C14 PO
[2017-05-23 11:00] LABS: U PREG PATIENT POSITIVE (NEG)
[2017-05-23 11:05] LABS: BILIRUBIN,URINE NEG (NEG); CLARITY,URINE HAZY; COLOR,URINE AMBER; GLUCOSE,URINE NEG (NEG)
[2017-05-23 11:06] LABS: BACTERIA,URINE 0 /HPF (0-FEW); HYALINE CASTS, URINE OCC /HPF; NITRITE,URINE NEG (NEG); RBC,URINE RARE /HPF (0-2); SQUAMOUS EPITHELIAL CELL,UR OCC /LPF; UROBILINOGEN,URINE 0.2 mg/dL (0.2 mg/dL); WBC,URINE 0 /HPF (0-4)
--- NOTE | 2017-05-23 11:26 | PHYS DOC ---
General Chief Complaint: ABDOMINAL PAIN Stated Complaint: ABD PAIN Time Seen by MD: 11:00 Source: patient, RN/MD, old records Exam Limitations: no limitations Problems: History of Present Illness Initial Comments Patient is a 21-year-old female who comes in the ED complaining of abdominal discomfort. Patient states that she had a D&C/ approximately 3 weeks ago. She was treated at by Dr. Dion Gonzalez office can be reached at [phone]. She says that she spotted a few days after the procedure, which was as she was advised and had been feeling well. 3 days ago. She says she started noticing some lower abdominal cramping. She denies any relationship to by mouth intake or activity, no nausea, vomiting or diarrhea. Her appetite remains intact. She' s had no urinary symptoms no vaginal discharge of any type. No dyspareunia and no bowel symptoms. Last bowel movement was yesterday described as normal. She says that she was offered a follow-up visit. She says she called the surgeons office for guidance today but received no instructions. Emergency department vital signs are normal. Last menstrual period was last week Timing/Duration: other (3 days) Severity: mild Modifying Factors: improves with other Associated Symptoms: other Allergies: Coded Allergies: No Known Drug Allergies (Unverified , 01/28/17) Past Medical History Medical History: no pertinent history Surgical History: no surgical history (D&C 3 wks ago) LMP (Females 10-50): last week Family History Significant Family History: no pertinent family hx Social History Smoker: non-smoker Alcohol: none Drugs: none Review of Systems Constitutional: denies chills, denies diaphoresis, denies fever, denies malaise Respiratory: denies cough, denies shortness of breath Cardiovascular: denies chest pain, denies palpitations, denies syncope Gastrointestinal: abdominal pain, denies constipation, denies diarrhea, denies nausea, denies vomiting Genitourinary: denies dysuria, denies frequency, denies hematuria Musculoskeletal: denies back pain, denies joint swelling, denies neck pain Psychiatric/Neurological: denies headache, denies numbness, denies paresthesia Physical Exam General Appearance: WD/WN, no apparent distress Ear, Nose, Throat: hearing grossly normal, normal ENT inspection Neck: non-tender, supple Respiratory: normal breath sounds, no respiratory distress Cardiovascular: normal peripheral pulses, regular rate, rhythm Gastrointestinal: soft (ND, mild suprapubic TTP no r/g/m, neg mcburney/boateng, no masses, BS normal) Back: no CVA tenderness, no vertebral tenderness Extremities: non-tender, normal inspection Neurologic/Psychiatric: rn transplant II-XII nml as tested, no motor/sensory deficits, alert, oriented x 3 Skin: normal color, warm/dry Orders, Labs, Meds Urine test positive Urinalysis unremarkable. 1120: I contacted Dr. Dion Gonzalez personally and spoke with him over the phone. He was able to pull the patient up in their computer system and we discussed her symptoms, history, physical exam from today, and urine studies at length. Dr. Sheridan recommends ibuprofen 600 mg as needed for discomfort. His office will contact the patient by phone today to schedule next available office visit for recheck. No further testing in the emergency department indicated and he specifically requests no opiates be prescribed for analgesia. I discussed these with the patient. She expressed agreement and understanding. Departure Time of Disposition: 11:22 Disposition: 01 HOME, SELF-CARE Diagnosis: abdominal cramping, s/p D&C Condition: GOOD Patient Instructions: Abdominal Pain (Nonspecific) Additional Instructions: As discussed, Dr. Sheridan or his in store representative will contact you by phone some time today to schedule you a follow-up office visit. As you now relate that your phone has been disconnected, you may call his office at [phone] if that works better for your situation. Xevw-[id number]-oauwjwy ibuprofen 600 mg every 6 hours for discomfort. Take with food. Activity as tolerated with pelvic rest. Follow up with Dr Sheridan as above. Return to ED with new or changing symptoms. KAREL QUINONES DO May 23, 2017 11:26
[2017-05-23 11:31] VITALS: BP 109/68
== END 2017-05-23 11:31 | disposition home or self-care (01) ==
LOC: ER 10:20
DX: R10.30 Lower abdominal pain, unspecified (principal); Z33.1 Pregnant state, incidental; Z98.890 Other specified postprocedural states
CPT/HCPCS: 81001; 81025; 99284

== ENCOUNTER 2017-06-03 11:22 | Emergency (ER) | payer OTHER ==
[~2017-06-03] VITALS: Ht 165.1 cm; Wt 62.2 kg
[2017-06-03 11:25] VITALS: BP 115/60
--- NOTE | 2017-06-03 11:25 | PHYS DOC ---
Past History Past Medical History: No Pertinent History Past Surgical History: No Surgical History Smoking: Non-smoker Alcohol Use: None Drug Use: None Adult General Chief Complaint Chief Complaint: abdominal pain and white vaginal discharge [facility] HPI Patient is a 21 year old -Martiniquais female who presents with suprapubic cramping pains been constant for 10 days in addition to a white vaginal discharge is started yesterday. She states she was seen here approximately 10 days ago and told to had a positive urine test and was told to use Advil for pain. She states she's taking 5 Advil every 3-4 hours without any relief. She denies any nausea vomiting. She states she's been once and that was 2 months ago and had have a D&C 3 weeks ago because there was no baby there. She states her last menstrual period was February 22. She states she's had a history of gonorrhea, Trichomonas, Chlamydia in the past. The last time being approximately 3 weeks ago and was treated for it. Review of Systems Review of Systems Constitutional: Denies fever or chills [] Eyes: Denies change in visual acuity, redness, or eye pain [] HENT: Denies nasal congestion or sore throat [] Respiratory: Denies cough or shortness of breath [] Cardiovascular: No additional information not addressed in HPI [] GI: Positive for abdominal pain with vaginal discharge, Denies nausea, vomiting , bloody stools or diarrhea [] : Denies dysuria or hematuria [] Musculoskeletal: Denies back pain or joint pain [] Integument: Denies rash or skin lesions [] Neurologic: Denies headache, focal weakness or sensory changes [] Endocrine: Denies polyuria or polydipsia [] Allergies Allergies Allergies Coded Allergies Type Severity Reaction Last Updated Verified No Known Drug Allergies 01/28/17 No Physical Exam Physical Exam Constitutional: Well developed, well nourished, no acute distress, non-toxic appearance. [] HENT: Normocephalic, atraumatic, bilateral external ears normal, oropharynx moist, no oral exudates, nose normal. [] Eyes: PERRLA, EOMI, conjunctiva normal, no discharge. [] Neck: Normal range of motion, no tenderness, supple, no stridor. [] Cardiovascular:Heart rate regular rhythm, no murmur [] Lungs & Thorax: Bilateral breath sounds clear to auscultation [] Abdomen/pelvic exam: Bowel sounds normal, soft, no tenderness, no masses, no pulsatile masses. Normal external genitalia, white thick discharge noted in the vault, no cervical motion tenderness, generalized erythema of the labia and vaginal vault. Skin: Warm, dry, no erythema, no rash. [] Back: No tenderness, no CVA tenderness. [] Extremities: No tenderness, no cyanosis, no clubbing, ROM intact, no edema. [] Neurologic: Alert and oriented X 3, normal motor function, normal sensory function, no focal deficits noted. [] Psychologic: Affect normal, judgement normal, mood normal. [] EKG EKG [] Radiology/Procedures Radiology/[place] [address] IMAGING REPORT Signed PATIENT: DAIANA COSTA ACCOUNT: [id number] : 1995 LOCATION: ER AGE: 21 SEX: F EXAM STATUS: REG ER ORD. PHYSICIAN: FELICIANO AVERY MD REASON: suprapubic pain PROCEDURE: US PELVIS W/TV Examination: Ultrasound pelvis History: History of suprapubic pain. Comparison: 03/22/2017 Technique: Transabdominal, transvaginal ultrasound of the pelvis. Findings: The uterus measures 7.0 x 2.8 x 5.1 cm. The right ovary measures 3.0 x 1.2 x 2.9 cm. The left ovary measures 4.0 x 2.1 x 2.5 cm. Blood flow identified in the right and left ovaries. Minimal amount of free fluid identified in the pelvis. Impression: Minimal amount of free fluid identified in the cul-de-sac. Otherwise unremarkable exam. DICTATED AND SIGNED BY: GERMAN BENITES MD DATE: 06/03/17 9511 CC: FELICIANO AVERY MD; PCP,NO ~ Impressions: Vaginal yeast infection Course & Med Decision Making Course & Med Decision Making Pertinent Labs and Imaging studies reviewed. (See chart for details) Her labs do not show any acute abnormalities other than yeast and her wet mount and UA. She was given 150 Diflucan and instructed to use [id number] topical creams over the next several days until feeling better. Return precautions given. She is instructed to call back in 2 days and find out the results for gonorrhea chlamydia test. She is agreeable to plan of being discharged in stable condition at this time and to return for worsening pain vaginal bleeding-fevers or other concerns. She is instructed to follow-up with her [employer] within the next few days, and not take more than prescribed of her Advil for her discomfort. RUN DATE: 06/03/17 [facility] LAB *LIVE* PAGE 1 RUN TIME: 1211 Specimen Inquiry PATIENT: DAIANA COSTA ACCT: [id number] LOC: PRECIOUS U : [id number] AGE/SX: 21/F ROOM: REG : 06/03/[address]: FELICIANO AVERY MD : 1995 BED: DIS : STATUS: DAVID LANG TLOC: SPEC #: [id number] JESSIE: 06/03/17-1140 STATUS: SRINIVAS OLGUIN #: [id number] RECD: 06/03/17-[address]: FELICIANO AVERY MD SOURCE: VAGINAL ENTR: 06/03/17-1140 [facility] DR: DEVIN LONG [facility]: ORDERED: WET PREP COMMENTS: Has specimen been collected/obtained? Y Procedure Result WET PREP Final YEAST PRESENT TRICHOMONAS NONE SEEN CLUE CELLS NONE SEEN SQUAMOUS EPS FEW END OF REPORT Dragon Disclaimer Brent Disclaimer This chart was dictated in whole or in part using Voice Recognition software in a busy, high-work load, and often noisy Emergency Department environment. It may contain unintended and wholly unrecognized errors or omissions. Departure Departure: Impression: Primary Impression: Vaginitis Disposition: 01 HOME, SELF-CARE Condition: STABLE Referrals: PCPDEVIN (PCP) Patient Instructions: Candidal Vulvovaginitis, [id number] Additional Instructions: Your urine test is negative and therefore you're not . The ultrasound of your uterus and ovaries didn't show any acute abnormalities. You do have a vaginal yeast infection of which you were given 1 pill of Diflucan and this should resolve. He can use [id number] Monistat cream to help with the itching and burning sensation and apply it 2 year genital area as needed over the next few days until the medicine kicks in. If you develop any fevers, worsening pain, vaginal bleeding or other concerns please return back to the ER. In 2-3 days he your gonorrhea and chlamydia test should be completed and we should know the results of them. You will need to call and asked for the results. Problem Qualifiers Primary Impression: Vaginitis Chronicity: acute Qualified Codes: N76.0 - Acute vaginitis FELICIANO AVERY MD Jun 03, 2017 11:25
[2017-06-03 12:05] LABS: BACTERIA,URINE FEW /HPF (0-FEW); BILIRUBIN,URINE NEG (NEG); CLARITY,URINE HAZY; COLOR,URINE AMBER; GLUCOSE,URINE NEG (NEG); NITRITE,URINE NEG (NEG); RBC,URINE RARE /HPF (0-2); SQUAMOUS EPITHELIAL CELL,UR MOD /LPF; UROBILINOGEN,URINE 1 mg/dL (0.2 mg/dL); WBC,URINE RARE /HPF (0-4); YEAST,URINE PRESENT /HPF
[2017-06-03 12:11] LABS: BASO % 1 % (0-3); EOS # 0.2 x10^3/uL (0.0-0.7); EOS % 5 % (0-3); HEMATOCRIT 39.2 % (36.0-47.0); HEMOGLOBIN 13.1 g/dL (12.0-15.5); LYMPH # 1.7 x10^3/uL (1.0-4.8); LYMPH % 43 % (24-48); MEAN CORPUSCULAR HEMOGLOBIN 27 pg (25-35); MEAN CORPUSCULAR HGB CONC 34 g/dL (31-37); MEAN CORPUSCULAR VOLUME 82 fL (79-100); MONO # 0.4 x10^3/uL (0.0-1.1); MONO % 10 % (0-9); NEUT # 1.6 x10^3uL (1.8-7.7); NEUT % 41 % (31-73); PLATELET COUNT 311 x10^3/uL (140-400); RED BLOOD COUNT 4.77 x10^6/uL (3.50-5.40); RED CELL DISTRIBUTION WIDTH 13.8 % (11.5-14.5)
[2017-06-03 12:24] LABS: ALBUMIN 3.7 g/dL (3.4-5.0); CALCIUM 9.2 mg/dL (8.5-10.1); CREATININE 0.8 mg/dL (0.6-1.0); DIRECT BILIRUBIN 0.1 mg/dL (0.0-0.2); GFR 110.7; POTASSIUM 3.9 mmol/L (3.5-5.1); TOTAL BILIRUBIN 0.6 mg/dL (0.2-1.0)
--- NOTE | 2017-06-03 12:24 | RAD ---
Examination: Ultrasound pelvis History: History of suprapubic pain. Comparison: 03/22/2017 Technique: Transabdominal, transvaginal ultrasound of the pelvis. Findings: The uterus measures 7.0 x 2.8 x 5.1 cm. The right ovary measures 3.0 x 1.2 x 2.9 cm. The left ovary measures 4.0 x 2.1 x 2.5 cm. Blood flow identified in the right and left ovaries. Minimal amount of free fluid identified in the pelvis. Impression: Minimal amount of free fluid identified in the cul-de-sac. Otherwise unremarkable exam.
[2017-06-03] MEDS ORDERED: FLUCONAZOLE 100 MG TABLET. PO ONE (12:45)
[2017-06-04 16:13] LABS: CHLAMYDIA PROBE Negative (Negative)
== END 2017-06-03 12:42 | disposition home or self-care (01) ==
LOC: EDBD 11:22 → ER 11:22
DX: N76.0 Acute vaginitis (principal); B37.3 Candidiasis of vulva and vagina
CPT/HCPCS: 36415; 76830; 76856; 80048; 80076; 81001; 81025; 85025; 87086; 87491; 87591; 99285; Q0111

== ENCOUNTER 2017-07-13 17:47 | Emergency (ER) | payer OTHER ==
[~2017-07-13] VITALS: Ht 165.1 cm; Wt 59.4 kg
[2017-07-13 18:11] VITALS: BP 152/0
--- NOTE | 2017-07-13 18:45 | PHYS DOC ---
Past History Past Medical History: Other Past Surgical History: Tonsillectomy, Other Smoking: Non-smoker Additional Smoking Information: 6 cigarettes/ day Alcohol Use: None Drug Use: None Adult General Chief Complaint Chief Complaint: PAIN ON URINATION [facility] HPI Patient is a 21 year old F who presents with genital herpes outbreak. Alycia has had herpes previously and takes Valtrex 1 g daily to prevent outbreaks. She has had symptoms that have been gradually worsening over the past 3-4 days. She describes ulcerations on her vulva that are associated with dull constant aching pain worse with urination and when her closed touch them. Review of Systems Review of Systems Constitutional: Denies fever or chills [] Eyes: Denies change in visual acuity, redness, or eye pain [] HENT: Denies nasal congestion or sore throat [] Respiratory: Denies cough or shortness of breath [] Cardiovascular: No additional information not addressed in HPI [] GI: Denies abdominal pain, nausea, vomiting, bloody stools or diarrhea [] : Denies dysuria or hematuria [] Musculoskeletal: Denies back pain or joint pain [] Integument: Negative except history of present illness Neurologic: Denies headache, focal weakness or sensory changes [] Endocrine: Denies polyuria or polydipsia [] Family History Family History Noncontributory Current Medications Current Medications Medications reviewed Allergies Allergies Allergies Coded Allergies Type Severity Reaction Last Updated Verified No Known Drug Allergies 01/28/17 No Physical Exam Physical Exam Constitutional: Well developed, well nourished, no acute distress, non-toxic appearance. [] HENT: Normocephalic, atraumatic, bilateral external ears normal, oropharynx moist, no oral exudates, nose normal. [] Eyes: EOMI, conjunctiva normal, no discharge. [] Cardiovascular:Heart rate regular rhythm, Lungs & Thorax: Bilateral breath sounds clear to auscultation [] Abdomen: Bowel sounds normal, soft, no tenderness, no masses, no pulsatile masses. [] Skin: Declined vaginal exam Back: No tenderness, no CVA tenderness. [] Extremities: No tenderness, no cyanosis, no clubbing, ROM intact, no edema. [] Neurologic: Alert and oriented X 3, normal motor function, normal sensory function, no focal deficits noted. [] Psychologic: Affect normal, judgement normal, mood normal. [] Current Patient Data Vital Signs Vital Signs Date Time Temp Pulse Resp B/P (MAP) Pulse Ox O2 Delivery O2 Flow Rate FiO2 07/13/17 18:11 98.4 82 18 99 Room Air EKG EKG [] Radiology/Procedures Radiology/Procedures [] Course & Med Decision Making Course & Med Decision Making Pertinent Labs and Imaging studies reviewed. (See chart for details) Alycia declined exam. She does have a history of genital herpes with a current prescription for Valtrex. It is presumed based on her description and history that she does have an outbreak however this cannot be confirmed as she declined her exam. Dragon Disclaimer Dragon Disclaimer This chart was dictated in whole or in part using Voice Recognition software in a busy, high-work load, and often noisy Emergency Department environment. It may contain unintended and wholly unrecognized errors or omissions. Departure Departure: Impression: Primary Impression: Genital herpes Disposition: HOME, SELF-CARE Condition: STABLE Referrals: PCP,NO (PCP) Patient Instructions: Genital Herpes Additional Instructions: Alycia was seen in the emergency room for a herpes outbreak. No emergency medical condition was found on history or physical exam. She was advised to continue her herpes medicine but to increase it to twice daily over the next 3 days. She is advised follow-up with her primary care doctor in the next 3-5 days for further management. Problem Qualifiers Primary Impression: Genital herpes Herpes simplex infection site: unspecified Qualified Codes: A60.00 - Herpesviral infection of urogenital system, unspecified SAYRA ROWE MD Jul 13, 2017 18:45
[2017-07-13 19:13] LABS: BACTERIA,URINE FEW /HPF (0-FEW); BILIRUBIN,URINE NEG (NEG); CLARITY,URINE HAZY; COLOR,URINE YELLOW; GLUCOSE,URINE NEG (NEG); NITRITE,URINE NEG (NEG); SQUAMOUS EPITHELIAL CELL,UR MANY /LPF; UROBILINOGEN,URINE 0.2 mg/dL (0.2 mg/dL)
== END 2017-07-13 18:52 | disposition home or self-care (01) ==
LOC: ER 17:47
DX: A60.00 Herpesviral infection of urogenital system, unspecified (principal); F17.210 Nicotine dependence, cigarettes, uncomplicated
CPT/HCPCS: 81001; 99283

== ENCOUNTER 2017-11-29 14:54 | Emergency (ER) | payer SELFPAY ==
[~2017-11-29] VITALS: Ht 165.1 cm; Wt 59.9 kg
[~2017-11-29 14:54] MED LIST changes: +VALA500T PO
[2017-11-29 15:06] VITALS: BP 119/88
[2017-11-29 15:59] LABS: BASO % 1 % (0-3); EOS # 0.2 x10^3/uL (0.0-0.7); EOS % 4 % (0-3); HEMATOCRIT 40.5 % (36.0-47.0); HEMOGLOBIN 13.4 g/dL (12.0-15.5); LYMPH % 56 % (24-48); MEAN CORPUSCULAR HEMOGLOBIN 28 pg (25-35); MEAN CORPUSCULAR HGB CONC 33 g/dL (31-37); MEAN CORPUSCULAR VOLUME 85 fL (79-100); MONO # 0.3 x10^3/uL (0.0-1.1); MONO % 9 % (0-9); NEUT # 1.1 x10^3uL (1.8-7.7); NEUT % 29 % (31-73); PLATELET COUNT 263 x10^3/uL (140-400); RED BLOOD COUNT 4.76 x10^6/uL (3.50-5.40); RED CELL DISTRIBUTION WIDTH 13.5 % (11.5-14.5); WHITE BLOOD COUNT 3.6 x10^3/uL (4.0-11.0)
[2017-11-29] MEDS ORDERED: IV NORMAL SALINE 1,000ML 1,000 ML IV ONE (16:00)
[2017-11-29 16:05] LABS: ALBUMIN 3.6 g/dL (3.4-5.0); ALBUMIN/GLOBULIN RATIO 1.1 (1.0-1.7); CALCIUM 9.3 mg/dL (8.5-10.1); CREATININE 0.8 mg/dL (0.6-1.0); GFR 109.6; POTASSIUM 3.8 mmol/L (3.5-5.1); TOTAL BILIRUBIN 0.3 mg/dL (0.2-1.0)
[2017-11-29] MEDS ORDERED: KETOROLAC 30 MG/ML VIAL. IV ONE (16:15)
[2017-11-29 16:19] LABS: BACTERIA,URINE 0 /HPF (0-FEW); BILIRUBIN,URINE NEG (NEG); CLARITY,URINE CLEAR; COLOR,URINE YELLOW; GLUCOSE,URINE NEG (NEG); NITRITE,URINE NEG (NEG); RBC,URINE 0 /HPF (0-2); SQUAMOUS EPITHELIAL CELL,UR OCC /LPF; UROBILINOGEN,URINE 0.2 mg/dL (0.2 mg/dL)
--- NOTE | 2017-11-29 16:21 | PHYS DOC ---
Past History Past Medical History: Other Past Surgical History: Tonsillectomy, Other Smoking: Non-smoker Alcohol Use: None Drug Use: None Adult General Chief Complaint Chief Complaint: SYNCOPE, abdominal pain HPI HPI 22-year-old female patient states she doesn't feel good for the last 2 weeks and complaining of lower abdominal pain as an intermittent pain with radiation to her back. Patient states the pain is sharp and rated her pain 5/10 and complaining of nausea without vomiting. Patient coming over episodes of diarrhea since yesterday. Patient states she felt dizzy and had a syncopal episode one week ago while she was in the bathroom. Patient states she used to be on Depo shot and a tear. On October 23. She denies vaginal bleeding, urinary symptoms, fever and chills, sick contact, focal neuro deficit, cough and congestion. Review of Systems Review of Systems Constitutional: Denies fever or chills [] Eyes: Denies change in visual acuity, redness, or eye pain [] HENT: Denies nasal congestion or sore throat [] Respiratory: Denies cough or shortness of breath [] Cardiovascular: No additional information not addressed in HPI [] GI: Reports abdominal pain, nausea,diarrhea, denies vomiting, bloody stools [] : Denies dysuria or hematuria [] Musculoskeletal: Denies back pain or joint pain [] Integument: Denies rash or skin lesions [] Neurologic: Denies headache, focal weakness or sensory changes, reports syncope and dizziness [] Endocrine: Denies polyuria or polydipsia [] All other systems were reviewed and found to be within normal limits, except as documented in this note. Current Medications Current Medications Current Medications Medications (Trade) Dose Ordered Sig/Domo Start Time Stop Time Status Last Admin Dose Admin Ketorolac Tromethamine (Toradol) 30 mg 1X ONCE 11/29/17 16:15 11/29/17 16:16 Sodium Chloride 1,000 ml @ 1,000 mls/hr 1X ONCE 11/29/17 16:00 11/29/17 16:59 11/29/17 16:06 1,000 MLS/HR Allergies Allergies Allergies Coded Allergies Type Severity Reaction Last Updated Verified No Known Drug Allergies 01/28/17 No Physical Exam Physical Exam Constitutional: Well developed, well nourished, no acute distress, non-toxic appearance. [] HENT: Normocephalic, atraumatic, bilateral external ears normal, oropharynx moist, no oral exudates, nose normal. [] Eyes: PERRLA, EOMI, conjunctiva normal, no discharge. [] Neck: Normal range of motion, no tenderness, supple, no stridor. [] Cardiovascular:Heart rate regular rhythm, no murmur [] Lungs & Thorax: Bilateral breath sounds clear to auscultation [] Abdomen: Bowel sounds normal, soft, no tenderness, no masses, no pulsatile masses. [] Skin: Warm, dry, no erythema, no rash. [] Back: No tenderness, no CVA tenderness. [] Extremities: No tenderness, no cyanosis, no clubbing, ROM intact, no edema. [] Neurologic: Alert and oriented X 3, normal motor function, normal sensory function, no focal deficits noted. [] Psychologic: Affect normal, judgement normal, mood normal. [] Current Patient Data Vital Signs Vital Signs Date Time Temp Pulse Resp B/P (MAP) Pulse Ox O2 Delivery O2 Flow Rate FiO2 11/29/17 15:06 98.1 99 18 100 Room Air Lab Results Laboratory Tests Test 11/29/17 14:40 11/29/17 15:33 POC Urine HCG, Qualitative hcg negative (Negative) White Blood Count 3.6 x10^3/uL (4.0-11.0) L Red Blood Count 4.76 x10^6/uL (3.50-5.40) Hemoglobin 13.4 g/dL (12.0-15.5) Hematocrit 40.5 % (36.0-47.0) Mean Corpuscular Volume 85 fL (79-100) Mean Corpuscular Hemoglobin 28 pg (25-35) Mean Corpuscular Hemoglobin Concent 33 g/dL (31-37) Red Cell Distribution Width 13.5 % (11.5-14.5) Platelet Count 263 x10^3/uL (140-400) Neutrophils (%) (Auto) 29 % (31-73) L Lymphocytes (%) (Auto) 56 % (24-48) H Monocytes (%) (Auto) 9 % (0-9) Eosinophils (%) (Auto) 4 % (0-3) H Basophils (%) (Auto) 1 % (0-3) Neutrophils # (Auto) 1.1 x10^3uL (1.8-7.7) L Lymphocytes # (Auto) 2.0 x10^3/uL (1.0-4.8) Monocytes # (Auto) 0.3 x10^3/uL (0.0-1.1) Eosinophils # (Auto) 0.2 x10^3/uL (0.0-0.7) Basophils # (Auto) 0.0 x10^3/uL (0.0-0.2) EKG EKG EKG at 1508 showed normal sinus rhythm at rate of 78, no ST and T wave abnormality[] Radiology/Procedures Radiology/Procedures [] Course & Med Decision Making Course & Med Decision Making Pertinent Labs reviewed. (See chart for details) Evaluation of patient in ER showed 22-year-old female patient with multiple complaints and unremarkable physical exam and labs except for mild UTI and white count of 3.6. Patient felt better with IV fluid and Toradol. Patient instructed to increase fluid intake and follow with her primary care physician. [] Dragon Disclaimer Dragon Disclaimer This electronic medical record was generated, in whole or in part, using a voice recognition dictation system. Departure Departure: Impression: Primary Impression: Urinary tract infection Additional Impressions: Viral illness Abdominal pain Syncope Dizziness Disposition: HOME, SELF-CARE (At 1641) Condition: IMPROVED Referrals: PCPDEVIN (PCP) Patient Instructions: Urinary Tract Infection, Viral Syndrome Additional Instructions: Drink plenty of liquids Follow-up with your primary care physician in 3-5 days Return to ER if not getting better Scripts Naproxen (NAPROSYN) 500 Mg Tablet 1 TAB PO BID, #14 TAB 1 Refill Prov: MARGIE BHATTI MD 11/29/17 Ciprofloxacin Hcl (CIPRO) 250 Mg Tablet 1 TAB PO BID, #6 TAB Prov: MARGIE BHATTI MD 11/29/17 Problem Qualifiers MARGIE BHATTI MD Nov 29, 2017 16:21
[2017-11-29] MEDS ORDERED: NAPR-683 PO (16:43)
[2017-11-29] MEDS ORDERED: CIPR250T30 PO (16:43)
== END 2017-11-29 16:55 | disposition home or self-care (01) ==
LOC: ER 14:54
DX: N39.0 Urinary tract infection, site not specified (principal); B34.9 Viral infection, unspecified; R55 Syncope and collapse
CPT/HCPCS: 36415; 80053; 81001; 81025; 83690; 85025; 87086; 96361; 96374; 99284; J1885; J7030